=== PATIENT | male | born 1955 | race Caucasian/White ===

== ENCOUNTER 2018-05-12 10:18 | Emergency (ER) | payer OTHER ==
[2018-05-12] MEDS ORDERED: Adacel (T-DAP) 0.5 ML SYRINGE ONE (10:44)
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
[2018-05-12] MEDS ORDERED: traMADol HCl 50 MG TAB ONE (11:28)
[2018-05-12] MEDS ORDERED: CEFAZOLIN 1 GM VIAL ONE (12:05)
[2018-05-12] MEDS ORDERED: Lidocaine 1% PF 5 ML VIAL ONE ×2 (12:40→12:41)
[2018-05-12] MEDS ORDERED: Lidocaine 1% (PF) 30 ML VIAL ONE (12:56)
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
== END 2018-05-12 14:30 | disposition home or self-care (01) ==
LOC: ERS 10:18
DX: S61.412A Laceration without foreign body of left hand, initial encounter (principal); W32.0XXA Accidental handgun discharge, initial encounter
CPT/HCPCS: 90471; 90715; 96365; J0690; J2001